=== PATIENT | female | born 1955 | race Caucasian/White ===

== ENCOUNTER 2017-07-26 13:23 | Emergency (ER) | payer MEDICAID ==
[2017-07-26 13:23] VITALS: BMI 32.6
[2017-07-26 13:28] VITALS: BP 143/80; PULSE 126; RESP 18; TEMP 98.1; O2SAT 97
--- NOTE | 2017-07-26 13:47 | C.PDOC ---
History Of Present Illness 62 yr old female presents to the ER for evaluation of slight discomfort of the left ear for the past 2 weeks. Patient states she has had "problems" with the left ear for a while. Reports has been using OTC wax drops with no improvement. Denies fever, acute hearing change, ear discharge, throat pain or neck pain. Time Seen by Provider: 07/26/17 13:34 Chief Complaint (Nursing): ENT Problem History Per: Patient History/Exam Limitations: None Onset/Duration Of Symptoms: Days Current Symptoms Are (Timing): Still Present Quality (Ear): denies: Swelling, Discharge Past Medical History Reviewed: Historical Data, Nursing Documentation, Vital Signs Vital Signs: Last Vital Signs Temp 98.1 F 07/26/17 13:25 Pulse 126 H 07/26/17 13:25 Resp 18 07/26/17 13:25 BP 143/80 07/26/17 13:25 Pulse Ox 97 07/26/17 13:46 - Medical History PMH: Arthritis, Diabetes, HTN, Hypercholesterolemia - [facility] Procedures TETANUS TOXOID ADMINIST (03/14/13) Family History: States: No Known Family Hx - Social History Hx Tobacco Use: No Hx Alcohol Use: No Hx Substance Use: No - Immunization History Hx Tetanus Toxoid Vaccination: Yes Hx Influenza Vaccination: No Hx Pneumococcal Vaccination: Yes Review Of Systems Except As Marked, All Systems Reviewed And Found Negative. Constitutional: Negative for: Fever ENT: Positive for: Ear Pain (Left ear discomfort), Other (No hearing change). Negative for: Ear Discharge, Throat Pain Musculoskeletal: Negative for: Neck Pain Physical Exam - Physical Exam Appears: Non-toxic, No Acute Distress Skin: Warm, Dry, No Rash Head: Atraumatic, Normacephalic Ear(s): Left: Other (TM visulized. Mild swelling to the canal. No errythema or swelling to the outer ear.), Right: Normal (TM Visulized.) Extremity: Normal ROM, No Swelling Neurological/Psych: Oriented x3, Normal Speech ED Course And Treatment O2 Sat by Pulse Oximetry: 97 (RA) Pulse Ox Interpretation: Normal Disposition Counseled Patient/Family Regarding: Diagnosis, Need For Followup, Rx Given - Disposition Referrals: Tavon Portillo MD [Staff Provider] - Disposition: HOME/ ROUTINE Disposition Time: 13:45 Condition: GOOD Prescriptions: Ciprofloxacin/Dexamethasone [Ciprodex 0.3%-0.1% 7.5 Ml] 4 drop OT BID #1 bottle Instructions: Otitis Externa (ED) Forms: [facility] (Lao) - Clinical Impression Clinical Impression: Otitis externa - Scribe Statement The provider has reviewed the documentation as recorded by the Donitaibe Anita Galdamez Provider Attestation: All medical record entries made by the Donitaibe were at my direction and personally dictated by me. I have reviewed the chart and agree that the record accurately reflects my personal performance of the history, physical exam, medical decision making, and the department course for this patient. I have also personally directed, reviewed, and agree with the discharge instructions and disposition.
== END 2017-07-26 13:54 | disposition home or self-care (01) ==
LOC: C.ER 13:23
DX: H60.92 Unspecified otitis externa, left ear (principal)

== ENCOUNTER 2018-11-01 13:23 | Outpatient (CLI) | payer MEDICAID | END 2018-11-01 13:24 | disposition home or self-care (01) | LOC: C.MAMMO 13:23 ==